=== PATIENT | female | born 1995 | race Caucasian/White ===

== ENCOUNTER 2017-09-24 16:13 | Emergency (ER) | payer SELFPAY ==
[~2017-09-24] VITALS: Ht 165.1 cm; Wt 89.2 kg
[~2017-09-24 16:13] MED LIST: ALBU8.5H3 INH
[2017-09-24 16:29] VITALS: Ht 165.1 cm; Wt 89.2 kg
[2017-09-24] MEDS ORDERED: ALBUTEROL 0.083% (NEB) 2.5 MG/3 ML AMP HHN STA (19:11)
--- NOTE | 2017-09-24 19:20 | ERD ---
ER Documentation Chief Complaint Chief Complaint asthma inhaler not effective and has been sob and coughing HPI 21-year-old female presents emergency department for cough and shortness of breath for about 2 days. Stated that sometimes she has a phlegm. Her pro-air is not relieved by her pro-air inhaler. LMP: Stated that she is on her period at this time. A0. Denies headache, dizziness, blurred vision, neck pain, throat pain, difficulty swallowing, shoulder pain, chest pain, back pain, abdominal pain, nausea, vomiting, constant, diarrhea, loss of bowel and bladder control, changes in bowel or bladder habits, urinary symptoms, or possibility of being , recent long travel, recent travel, recent exposure to any illness, recent antibiotic use in the last 3 months, fever, chills. ROS All systems reviewed and are negative except as per history of present illness. Medications Home Meds Active Scripts Beclomethasone Dipropionate (QNASL) 8.7 Gm Hfa.aer.ad, 1 SPRAYS NASAL DAILY, #1 INHALER PER NOSTRIL Prov:JESSICA VENTURA 09/24/17 Albuterol Sulfate* (Albuterol Sulfate* Neb) 0.083%-3 Ml Neb, 2.5 MG NEB Q4 Y for SHORTNESS OF BREATH, #30 EA Prov:JESSICA VENTURA 09/24/17 Albuterol Sulfate* (Proair HFA*) 8.5 Gm Hfa.aer.ad, 2 PUFF INH Q4, #1 INHALER Prov:JESSICA VENTURA 09/24/17 Prednisone* (Prednisone*) 20 Mg Tab, 40 MG PO DAILY for 4 Days, TAB Prov:JESSICA VENTURA 09/24/17 Albuterol Sulfate* (Proair HFA*) 8.5 Gm Hfa.aer.ad, 2 PUFF INH Q4, #1 INHALER Prov:CHERISE BECKETT PA-C 09/17/16 Allergies Allergies: Coded Allergies: No Known Allergy (Unverified , 09/17/16) PMhx/Soc History of Surgery: No Anesthesia Reaction: No Hx Neurological Disorder: No Hx Respiratory Disorders: No Hx Cardiac Disorders: No Hx Psychiatric Problems: No Hx Miscellaneous Medical Probl: No Hx Alcohol Use: No Hx Substance Use: No Hx Tobacco Use: No Physical Exam Vitals Vital Signs Date Time Temp Pulse Resp B/P Pulse Ox O2 Delivery O2 Flow Rate FiO2 09/24/17 19:24 99 20 98 21 09/24/17 16:29 98.0 80 18 155/79 99 Physical Exam Const: Alert and oriented. Not in acute distress. Head: Atraumatic Eyes: Normal Conjunctiva ENT: Normal External Ears, Nose and Mouth. Neck: Full range of motion..~ No meningismus. Resp: Wheezing in bilateral lower lobes. Cardio: Regular rate and rhythm, no murmurs Abd: Soft, non tender, non distended. Normal bowel sounds Skin: No petechiae or rashes Back: No midline or flank tenderness Ext: No cyanosis, or edema Neur: Awake and alert Psych: Normal Mood and Affect Results 24 hrs Current Medications Medications (Trade) Dose Ordered Sig/[place] Route PRN Reason Start Time Stop Time Status Last Admin Dose Admin Methylprednisolone Sodium Succinate (Solu-Medrol) 125 mg ONCE ONCE IM 09/24/17 19:30 09/24/17 19:31 DC 09/24/17 19:24 Albuterol (Proventil 0.083% (Neb)) 5 mg ONCE STAT HHN 09/24/17 19:11 09/24/17 19:13 DC 09/24/17 19:24 Ipratropium [place] (Atrovent 0.02% (Neb)) 0.5 mg ONCE ONCE HHN 09/24/17 19:30 09/24/17 19:31 DC 09/24/17 19:24 Procedures/MDM Treatment: Solu-Medrol IM. Albuterol and Atrovent breathing treatment. Reevaluation: Denies chest pain. Respirations even and unlabored. Lung sounds are clear to auscultation. Stated that she feels much better at this time and is ready to go home. I have low suspicion for status asthmaticus, bronchospasm, pneumonia given the patient's history, my physical exam, and patient's improvement in symptoms after the treatment. Final diagnosis: Asthma exacerbation, asthmatic bronchitis. Prescription: Prednisone. Pro-air. Albuterol Nebules. QVAR. Follow-up with PCP in the next 24-48 hours. Come back here in the emergency department for any new symptoms or any worsening symptoms. All questions and concerns are answered. Patient and family member for verbalized understanding and agreed with the plan of care. Hemodynamically stable on discharge. Departure Diagnosis: Primary Impression: Asthma with acute exacerbation Additional Impressions: Asthma attack Asthmatic bronchitis Condition: Stable Additional Instructions: Follow-up with PCP in the next 24-48 hours. Come back here in the emergency department for any new symptoms or any worsening symptoms. All questions and concerns are answered. Patient and family member for verbalized understanding and agreed with the plan of care. JESSICA VENTURA Sep 24, 2017 19:20
[2017-09-24] MEDS ORDERED: PRED20TA PO (19:26)
[2017-09-24] MEDS ORDERED: ALBU2.5V3 NEB (19:27)
[2017-09-24] MEDS ORDERED: ALBU8.5H3 INH (19:27)
[2017-09-24] MEDS ORDERED: IPRATROPIUM (NEB) 0.5 MG/2.5 ML AMP HHN ONE (19:30)
[2017-09-24] MEDS ORDERED: METHYLPREDNISOLONE 125 MG INJ IM ONE (19:30)
[2017-09-24] MEDS ORDERED: BECL8.7H NASAL (19:31)
== END 2017-09-24 19:59 | disposition home or self-care (01) ==
LOC: FTE 16:13
DX: J45.901 Unspecified asthma with (acute) exacerbation (principal); J20.9 Acute bronchitis, unspecified
CPT/HCPCS: 94664; 96372; 99284; J2930

== ENCOUNTER 2018-06-13 11:03 | Emergency (ER) | END 2018-06-13 11:55 | disposition home or self-care (01) ==

== ENCOUNTER 2018-08-06 23:03 | Emergency (ER) | END 2018-08-07 01:10 | disposition home or self-care (01) ==